=== PATIENT | female | born 1980 | race Caucasian/White ===

== ENCOUNTER 2020-02-03 10:33 | Emergency (ER) | payer SELFPAY ==
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
[2020-02-03 10:44] VITALS: BP 101/66; PULSE 82; RESP 14; TEMP 36.8; O2SAT 100
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
== END 2020-02-03 12:09 | disposition home or self-care (01) ==
PROVIDERS: Emergency Provider Nurse Practitioner Family
DX: S13.4XXA Sprain of ligaments of cervical spine, initial encounter (principal); S29.012A Strain of muscle and tendon of back wall of thorax, initial encounter; F17.210 Nicotine dependence, cigarettes, uncomplicated; V48.5XXA Car driver injured in noncollision transport accident in traffic accident, initial encounter; F41.9 Anxiety disorder, unspecified; K21.9 Gastro-esophageal reflux disease without esophagitis
CPT/HCPCS: 72050; 72100; 99213; G0463

== ENCOUNTER 2024-12-25 14:39 | Emergency (ER) | payer OTHER, SELFPAY ==
--- NOTE | ~2024-12-25 | XR_ITS ---
EXAM: XR ankle RT min 3V DATE: 12/25/2024 15:19 HISTORY: injury right medial ankle . COMPARISON: None available. FINDINGS: Normal mineralization. No acute fracture or dislocation. Well-corticated ossific medial fr agment may represent a chronic fracture fragment or dystrophic ossification. No lytic or blastic lesi on. Mild degenerative change at the ankle joint. Os trigonum. Mild Achilles and moderate plantar enth esopathy. No erosion or periosteal change. Moderate medial and mild lateral soft tissue swelling. IMPRESSION: No acute osseous finding in the right ankle. Reviewed, dictated and finalized at location K.
[2024-12-25 14:48] VITALS: BP 100/67; PULSE 69; RESP 20; TEMP 36.8; O2SAT 98
--- NOTE | 2024-12-25 15:14 | ED.LOWEXIN ---
HPI - Extremity Injury (Lower) General Chief Complaint: Extremity Injury, Lower Stated Complaint: right ankle injury Time Seen by Provider: 12/25/24 15:05 Source: patient, RN notes reviewed and old records reviewed Mode of arrival: ambulatory Limitations: no limitations History of Present Illness HPI Narrative: 44-year-old female presents to [facility] with complaints right ankle injury which initially happened 2-3 weeks ago when she twisted her ankle and today she has experienced a popping sensation in her inner right ankle and has hurt worse today with ambulation. Some swelling noted to medial ankle area no obvious deformity. strong right pedal pulse noted. Patient reports that she has been taking Ibuprofen and using ice to her ankle. MD complaint: ankle injury Onset (ago): week(s) (2-3 weeks ago initial injury) Type of Injury: other (reports twisted) Severity: mild Treatments prior to arrival: cold therapy and NSAIDS Related Data Home Medications ?Medication ?Instructions ?Recorded ?Confirmed ?Last Taken ?Type No Home Medications 12/25/24 12/25/24 Unknown History Allergies Allergy/AdvReac Type Severity Reaction Status Date / Time No Known Allergies Allergy Verified 12/25/24 15:10 Review of Systems Review of Systems: CONSTITUTIONAL: Denies fever, chills, or sweats. EYES: Denies visual changes, redness, or discharge. ENT: Denies rhinorrhea, congestion, sore throat, or otalgia. CARDIOVASCULAR: Denies chest pain, palpitations, or edema. RESPIRATORY: Denies cough or dyspnea. GASTROINTESTINAL: Denies abdominal pain, nausea, vomiting, or diarrhea. GENITOURINARY: Denies dysuria or hematuria. SKIN: Denies rash or itching. MUSCULOSKELETAL: Denies back pain, reports some pain and swelling to medial right ankle area, or myalgia. NEUROLOGIC: Denies headache, numbness, or weakness. PSYCHIATRIC: Reports history of anxiety or depression. All systems reviewed & are unremarkable except as noted in HPI and below PMFSH Past Medical History Medical History History of gastroesophageal reflux (GERD) Anxiety Surgical History Surgical History History of tubal ligation Family History Family History Mother Hypertension Grandparent Hypertension Social History Social History Smoking packs per day: 0.5 Smoking cigarettes per day: 10.0 Years smoked: 26 Smoking pack-years: 13.00 Smoking status: Current every day smoker Tobacco type: cigarettes Second hand tobacco smoke exposure: No Alcohol intake: never Substance use: current Substance use type: marijuana Living arrangements: with family Occupation/Education: occupation Gender identity (if verbalized by the patient): Female Comments At time of signature, agree with nursing past medical, surgical, social and family history. There is no relevant family history pertinent to the presenting complaint Exam Narrative: GENERAL: Well-appearing, well-nourished, and in no acute distress. HEAD: Normocephalic, atraumatic. EYES: PERRLA and EOMI. ENT: Nares clear, no rhinorrhea or epistaxis. Mucous membranes moist. NECK: Supple.no lymphadenopathy CHEST: Clear to auscultation. No respiratory distress.SAO2 98% on room air HEART: Regular rate and rhythm. No murmur heard. Normal peripheral pulses. ABDOMEN: Soft, nontender, nondistended, normal active bowel sounds. EXTREMITIES: Normal range of motion. No edema. Exception noted to medial aspect of right ankle with some swelling noted, movement sensation and circulation is intact to right ankle with strong right pedal pulse present some painful ambulation reported. SKIN: Warm, dry, no rash. NEURO: No focal deficits. Alert and oriented x3. Course Course Emergency Course: Patient is aware of diagnosis, understands and agrees to treatment plan.? Anticipatory guidance given.? Patient agrees to follow-up as directed and is aware of reasons to seek care at the emergency department. Portions of this record may have been created with voice recognition software Level of Care: Express Care Visit Vital Signs Vital signs: Vital Signs Temperature 36.8 C 12/25/24 14:48 Pulse Rate 69 12/25/24 14:48 Respiratory Rate 20 12/25/24 14:48 Blood Pressure 100/67 12/25/24 14:48 Pulse Oximetry 98 12/25/24 14:48 Oxygen Delivery Room Air 12/25/24 14:48 Temperature 36.8 C 12/25/24 14:48 Pulse Rate 69 12/25/24 14:48 Respiratory Rate 20 12/25/24 14:48 Blood Pressure 100/67 12/25/24 14:48 Pulse Oximetry 98 12/25/24 14:48 Oxygen Delivery Room Air 12/25/24 14:48 Reviewed MDM - Extremity Injury (Lower) Differential Diagnosis Differential diagnosis: Likely ankle sprain and strain, ankle fracture and other (soft tissue swelling right ankle) Medical Records Attestation: I reviewed the patient's medical records. Imaging Data Attestation: I personally reviewed and interpreted this imaging study as follows: My impression: no acute osseous findings in right ankle some soft tissue swelling noted Radiologist's impression: [facility] [address] [place] [address] XRay Report Signed Patient: Candice Perez : 1980 MR#: [id number] Age: 44 Acct:[id number] Loc: [facility] ADM Date: 12/25/24Attending Dr: Ordering Physician: Charmaine lAmanzar APRN Date of Service: 12/25/24 Procedure(s): XR ankle RT min 3V Accession Number(s): [id number] cc: RAILWAY SIGNAL ELECTRICIAN PHYSICIAN; Charmaine Almanzar APRN~ EXAM: XR ankle RT min 3V DATE: 12/25/2024 15:19 HISTORY: injury right medial ankle . COMPARISON: None available. FINDINGS: Normal mineralization. No acute fracture or dislocation. Well-corticated ossific medial fragment may represent a chronic fracture fragment or dystrophic ossification. No lytic or blastic lesion. Mild degenerative change at the ankle joint. Os trigonum. Mild Achilles and moderate plantar enthesopathy. No erosion or periosteal change. Moderate medial and mild lateral soft tissue swelling. IMPRESSION: No acute osseous finding in the right ankle. Reviewed, dictated and finalized at location K. Please be advised this is a medical document. It is intended for [id number] communication. It is written in medical language and may contain unfamiliar abbreviations or verbiage. Medical documents are intended to carry relevant information, facts as evident, and the clinical opinion of the practitioner at the time of the encounter. This report may have been done utilizing a voice recognition system. Attempts have been made to correct errors. However, there may be uncorrected grammatical, spelling, and recognition errors present. The file time of this note does not necessarily represent the time of service. Dictated By: Jitendra Huffman MD 12/25/24 1520 Signed By: <Electronically signed by Jitendra Huffman MD in OV> Critical Care Time Critical Care Time Critical Care Time: No Discharge Plan Discharge Clinical Impression: Ankle sprain and strain Patient Disposition: Home, Self-Care Condition: Stable Instructions: Ankle Sprain (ED) Additional Instructions: Elastic wrap or orthopedic splint as directed for comfort for the next 5-7 days Tylenol for lesser pain Ibuprofen regularly for the next 2-3 days for the inflammation Follow-up with orthopedic surgeon if no improvement or further concerns Follow-up with PCP if further problems or concerns Ice to the area 20-30 minutes 4-6 times a day Elevate above heart If your symptoms persist, change or worsen significantly before you can contact your personal physician then please, without delay, go to the emergency department for further evaluation. Follow-up with PCP in 7-10 days or sooner if needed Patient Language: Lao Prescriptions: No Action No Home Medications Follow-up/Referrals: PHYSICIAN,RAILWAY SIGNAL ELECTRICIAN [Primary Care Provider] - Time of Disposition: 15:29 Quality Baljit Coma Scale Eyes: Open Verbal: Oriented and Alert Motor: Follows Commands Baljit Coma Total Score: 15
--- OUTSIDE RECORDS SUMMARY | 2024-12-25 17:08 | XMS_ITS | Referral Summary ---
Author Organization [facility] Address [address] [place] [address] Care Team Providers Care Section Leader Screen Printing Name Role Phone Unknown, Notinfile Primary Care Provider Unavail able Dahlia Ramos MD Unavailable Allergies Active Allergy Reactions Criticality Noted Date Comments Latex Itching Low 07/17/2022 Medications busPIRone (BUSPAR) 7.5 mg tablet Take 1 tablet (7.5 mg total) by mouth 2 (two) times a day 4 Active HYDROcodone-kenneth taminophen (NORCO) 5-325 mg per tabletIndicatio ns:Pain Take 1 tablet by mouth every 4 (four) hours as needed for pain 10 tablet 4 Active Additional Information Patient not taking.Reported on 04/10/2024 ibuprofen (ADVIL,MOTRIN) 600 mg tablet Take 1 tablet (600 mg total) by mouth every 6 (six) hours as needed for pain 4 Active Additional Information Patient not taking.Reported on 04/10/2024 Active Problems Problem Noted Date Diagnosed Date S/P laparoscopic hysterectomy 03/27/2024 Menorrhagia with regular cycle 02/17/2024 Dysmenorrhea 02/17/2024 Pelvic pain in female 02/17/2024 Dyspareunia, female 02/17/2024 Anxiety disorder 01/26/2024 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 Overview (01/21/2017): NONTOX NODUL GOITER NOS Hyperlipidemia 03/03/2014 Overview (01/21/2017): Hyperlipidemia LDL goal < 130 Lipoprotein deficiency disorder 01/26/2012 Overview (01/21/2017): Lipoprotein deficiency Depression 06/09/2011 Overview (01/21/2017): DEPRESSIVE DISORDER NEC Hypothyroidism 06/09/2011 Overview (01/22/2017): Hypothyroidism, unspec Immunizations Immunization Administration Dates Next Due Influenza, Split 08/18/2011 Social History Tobacco Use Types Packs/Day Years Used Date Smoking Tobacco: Every Day Cigarettes Smokeless Tobacco: Never Tobacco Cessation:Ready to Q uit: Not Asked; Counseling Given: Not Answered Alcohol Use Standard Drinks/Week Comments Not Currently 0 (1 standard drink = 0.6 oz pur e alcohol) AUDIT-C Answer Date Recorded Frequency of Alcohol Consumption Not on file 03/17/2024 Q2: How many drinks containi ng alcohol do you have on a typical day when you are drinking? Patient does not drink Frequency of Binge Drinking Not on file 02/17 Personal Safety Answer Date Recorded Have you ever been in or are you currently in a harmful physical or emotional relationship or is someone making you feel afraid or unsafe? 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 Not on file Not on file Not on file Last Filed Vital Signs Vital Sign Reading Time Taken Comments Blood Pressure 118/80 04/10/2024 2:37 PM CDT Pulse 65 03/27/2024 10:40 AM CDT Temperature 36.3 C (97.4 F) 03/27/2024 10:40 AM CDT Respiratory Rate 16 03/27/2024 10:40 AM CDT Oxygen Saturation 100% 03/27/2024 10:40 AM CDT Inhaled Oxygen Concentration - - Weight 73.9 kg (163 lb) 04/10/2024 2:37 PM CDT Height 167.6 cm (5' 6 ) 03/27/2024 6:26 AM CDT Body Mass Index 26.31 03/27/2024 6:26 AM CDT Plan of Treatment Not on file Procedures Procedure Name Priority Date/Time Associated Diagnosis Comments DIAGNOSTIC MAMMOGRAM BILATERAL W JACQUI Schedule Routine, Read Routine (OP Routine) 08/18/2024 9:12 AM CDT Bilateral breast cysts HIGH RISK HPV DNA DETECTION WITH GENOTYPING Routine 01/26/2024 1:01 PM CDT Screening for malignant neoplasm of the cervix from Last 3 Months or Most Recently Relevant to Health Maintenance Results * Diagnostic Mammogram Bilateral W Jacqui (08/18/2024 9:12 AM CDT) Anatomical Region Laterality Modality Breast Bilateral Mammography 08/18/2024 9:50 AM CDT Impressions 08/18/2024 9:50 AM CDT Bilateral breast lesions are benign. No mammographic or sonographic evidence of malignancy. OVERALL FINAL ASSESSMENT: BI-RADS Category 2: Benign. RECOMMENDATION: Patient may return to her annual bilateral screening mammogram schedule. The patient is due in 6 months time. Electronically signed by: Lawanda Nails M.D. Narrative 08/18/2024 9:50 AM CDT EXAMINATION: BILATERAL DIGITAL DIAGNOSTIC MAMMOGRAM INCLUDING CAD AND BILATERAL DIGITAL BREAST TOMOSYNTHESIS; BILATERAL BREAST SONOGRAM HISTORY: Follow-up bilateral breast lesions on baseline study COMPARISON: 02/07/2024, 02/02/2024 TECHNIQUE: Full field digital mammographic views of BOTH breasts were performed, including computer aided detection (CAD) and BILATERAL digital breast tomosynthesis (DBT). Directed ultrasound evaluation of BOTH breasts was performed. BREAST PARENCHYMAL COMPOSITION: The breasts are heterogeneously dense, which may obscure small masses. MAMMOGRAM FINDINGS: Right breast focal asymmetry is again identified and unchanged. Left breast asymmetry is unchanged. There is no new dominant densities or suspicious microcalcifications identified bilaterally. SONOGRAM FINDINGS: Targeted right breast ultrasound was performed in the region of interest. At the 12 o'clock position 1 cm from the nipple is an anechoic cyst measuring 3 mm. This is unchanged. This may correlate with the mammographic finding is unchanged and is benign. Targeted left breast ultrasound was performed in the region of interest. Again identified at the 1 o'clock position 2 cm from the nipple. There is an anechoic cyst identified measuring 5 mm. There is no evidence of color flow. This is unchanged when compared with the previous study. This previously correlated as incidental and is benign. us Dahlia Ramos MD IMG MAMMO PROCEDURES Final Result * High Risk HPV DNA Detection with Genotyping (Molecular component) (01/26/2024 1:01 PM CDT) HPV HR 16 Not Detected Not Detected [facility] Comment:Testing performed by : [facility], [address] [place]., [address] HPV HR 18 Not Detected Not Detected [facility] Comment:Testing performed by : [facility], [address] [place]., [address] HPV HR Non 16/18 Not Detected Not Detected [facility] Comment: Interpretive Data Nucleic acid amplification for detection of high-risk Human Papilloma virus (HPV) is performed by the Zoila Clover 6800 HPV test. This assay specifically detects HPV-16 and HPV-18 genotypes. The following HPV genotypes are detected as high-risk HPV: HPV-31, 33, 35, ,39, 45, 51, 52, 56, 58, 59, 66, and 68. This assay has been approved by the [place] Food and Drug Administration for detection of HPV in cervical specimens collected by a physician using an endocervical brush/spatula or cervical broom and placed in the ThinPrep Pap Test PreservCyt collection containers. The performance characteristics of this test have been verified by the [facility] laboratory. Correlate with separately reported cytology results, as applicable. Interpretive data last revised 23 Testing performed by: [facility], [address] [place] [address] Endocervical 01/26/2024 1:01 PM CDT 01/27/2024 10:11 AM CDT Narrative [facility] - 01/28/2024 7:16 AM CDT Clinical history and diagnosis->DX Z12.4 Testing type->Screening Last menstrual period (date if known)->01/01/24 Dahlia Ramos MD LAB BODY FLUIDS AND S TOOLS ORDERABLES Final Result [facility] [address] [place] [address] [facility] from Last 3 Months or Most Recently Relevant to Health Maintenance Insurance [facility] CHO[facility] PLUS [facility] CHO[facility] PLUS Advance Directives For more information, please contact: [phone] * Full Code (Latest Code Status on File) Date Activated Date Inactivated Comments 03/27/2024 10:44 AM 03/27/2024 6:24 PM Care Teams Section Leader Screen Printing Relationship Specialty Start Date End Date Unknown, Notinfile PCP - General Service Electrician 5/30/24 Dahlia Ramos MD [address] [place] [address] Public Address System Operator Obstetrics and Gynecology 03/27/24
--- OUTSIDE RECORDS SUMMARY | 2024-12-25 17:08 | XMS_ITS | Clinical Summary ---
Author Organization [facility] Address [address] [place] [address] Care Team Providers Care Wood Machinist Name Role Phone Unknown, Notinfile Primary Care [...] Administration Dates Next Due Influenza, Split 08/18/2011 Surgical History Surgery Date Site/Laterality Comments LAPAROSCOPIC TUBAL LIGATION 2010 Bilateral SALPINGECTOMY 10/18/2023 - 10/17/2024 Bilateral with [facility] LAPAROSCOPIC TOTAL HYSTERECTOMY 10/18/2023 - 10/17/2024 [facility]-bilateral salpingectomy for menorrhagia, dysmenorrhea, dypareunia, pelvic pain. Benign pathology. Medical History Medical History Date Comments Disorder of thyroid Thyroid dise ase Anxiety and depression Hx Other Medical 2006 Hypothyroidism, primary Smoking Family History Medical History Relation Name Comments Heart attack Brother 1 Gabriel Myocardial infa rction; Cause of : Myocardial infarction Other Brother 1 Gabriel Cancer -testicu lar; Other Brother 2 Mark Alive and well; Other Father PTSD ; /Color blindness; /Alive and well; Heart attack Maternal Grandfather Myocard ial infarction; Cause of : Myocardial infarction Stroke Maternal Grandfather Anuerysm Maternal Grandmother Aneurys m; Diabetes type II Mother Diabetes -T ype 2; Heart attack Mother Hypertension Mother Hypertension; Hyperthyroidism Mother Hyperthyroid ism; Osteoporosis Mother Osteoporosis; Other Mother Alive and well; Thyroid disease Mother Thyroid diso rder; Diabetes type II Other 1 Family hist ory of Diabetes -Type II; Thyroid disease Other 2 Family histo ry of Thyroid disorder; Thyroid disease Other 3 Family histo ry of Thyroid disease; Cancer Other 4 Family history of Cancer; Heart disease Other 5 Family history of Heart disease; Hypertension Other 6 Family history of Hypertension; Colon cancer Paternal Grandfather Cancer -colon; Heart disease Paternal Grandfather Leukemia Paternal Grandfather Leukemi a; Coronary artery disease Paternal Grandmother Coronary artery disease; Parkinsonism Paternal Grandmother Skin cancer Paternal Grandmother Cancer -skin; Relation Name Status Comments Brother 1 Gabriel Brother 2 Mark Alive Father Alive Maternal Grandfather Maternal Grandmother Mother Alive Other 1 Other 2 Other 3 Other 4 Other 5 Other 6 Paternal Grandfather Paternal Grandmother Social History Tobacco Use Types Packs/Day Years [...] on file Legal Sex Female 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 Not on file Not on file Not on file Obstetrics History Para Term AB IAB SAB Ectopic Multiple Livin g Live Births 3 3 3 3 3 Date Outcome GA Total Labor Labor/2nd/3rd Weight Sex Type Anes PTL Keny[place] A1 A5 Name Clin 2000 Term 3.26 kg (7 lb 3 oz) F Vaginal Living 2005 Term 3.544 kg (7 lb 13 oz) F Vaginal Living 2010 Term 3.43 kg (7 lb 9 oz) M Vaginal Living Comments Uncomplicated term vaginal d eliveries. Last Filed Vital Signs Vital Sign Reading [...] 03/27/2024 6:26 AM CDT Plan of Treatment Health Maintenance Due Date Last Done Comments Depression Screening 1980 Hepatitis C Screening 1980 DTaP/Tdap/Td Vaccine (1 - Tdap) 1991 Varicella Vaccines (1 of 2 - 13+ 2-dose series) 1993 Hepatitis B Screening 1998 Regular Well Visit/Exam 18-64 1998 Pneumococcal vaccine <65 (1 of 2 - PCV) 1999 Covid-19 Vaccine (3 - 2023- season) 2024 04/05/2021, 03/15/2021 Influenza Vaccine (#1) 2024 6, 08/18/2011 Breast Cancer Screening-Mammogram 08/18/2025 08/18/2024, 02/07/2024, 02/02/2024 Cervical Cancer Screening Discontinued 2023, 01/26/2024 HPV Vaccines Aged Out No longer eligi ble based on patient's age to complete this topic Procedures Procedure Name Priority Date/Time Associated Diagnosis Comments DIAGNOSTIC MAMMOGRAM BILATERAL W BRIAN Schedule Routine, Read Routine (OP Routine) 08/18/2024 9:12 AM CDT Bilateral breast cysts HIGH RISK HPV DNA DETECTION WITH GENOTYPING Routine 01/26/2024 1:01 PM CDT Screening for malignant neoplasm of the cervix from Last 3 Months or Most Recently Relevant to Health Maintenance Results * Diagnostic Mammogram Bilateral W Brian (08/18/2024 9:12 AM CDT) Anatomical Region Laterality [...] previously correlated as incidental and is benign. Dahlia Ramos MD IMG MAMMO PROCEDURES Final Result * High Risk HPV DNA Detection with Genotyping (Molecular component) (01/26/2024 1:01 PM CDT) HPV HR 16 Not Detected Not Detected [facility] Comment:Testing performed by : [facility], [address] [place] [address] HPV HR 18 Not Detected Not Detected [facility] Comment:Testing performed by : [facility], [address] [place] [address] HPV HR Non 16/18 Not Detected Not Detected [facility] Comment: Interpretive Data Nucleic acid amplification for [...] this test have been verified by the [facility] Molecular Infectious Disease laboratory. Correlate with separately reported cytology results, as applicable. Interpretive data last revised 23 Testing performed by: [facility], [address] [place] [address] Endocervical 01/26/2024 1:01 PM CDT 01/27/2024 10:11 AM CDT Narrative [facility] - 01/28/2024 7:16 AM CDT Clinical history and diagnosis->DX Z12.4 Testing type->Screening Last menstrual period (date if known)->01/01/24 Dahlia Ramos MD LAB BODY FLUIDS AND S TOOLS ORDERABLES Final Result [facility] [id number] Department [place] [address] [facility] from Last 3 Months or Most Recently Relevant to Health Maintenance Insurance [facility] CHO[facility] PLUS [facility] CHOICE PLUS Advance Directives For more information, please contact: [phone] * Full Code (Latest Code Status on File) Date Activated Date Inactivated Comments 03/27/2024 10:44 AM 03/27/2024 6:24 PM Care Teams Wood Machinist Relationship Specialty Start Date End Date Unknown, Notinfile PCP - General Payroll Accounting Clerk 03/16/24 Dahlia Ramos MD [address] [id number] [employer] Obstetrics [facility] Gynecology 03/27/24
--- OUTSIDE RECORDS SUMMARY | 2024-12-25 17:08 | XMS_ITS | Clinical Summary ---
Author Organization [facility] Address [address] [place] [address] Phone Care Team Providers Care Gauge And Instrument Inspector Name Role Phone Provider, None Primary Care Provider Unavailabl e Allergies No known active allergies Medications buPROPion (WELLBUTRIN) 300 MG TABLET SR 24 HR XL tablet Take 300 mg by mouth daily. Active venlafaxine (EFFEXOR) 75 MG Tablet Active Active Problems Problem Noted Date Diagnosed Date Adjustment disorder with mixed anxiety and depre ssed mood 04/24/2024 Dysthymic disorder 01/10/2018 Generalized anxiety disorder 01/10/2018 Immunizations Immunization Administration Dates Next Due Influenza Vaccine greater than 3 yrs 06/30/2016 Family History Medical History Relation Name Comments Alcohol Abuse Brother 3 Raul Relation Name Status Comments Brother 1 Brother 2 Mark Alive Brother 3 Raul Alive Brother 4 Shreyas Alive Brother 5 Alive Father Alive Mother Alive Social History Tobacco Use Types Packs/Day Years Used Date Smoking Tobacco: Every Day Cigarettes Smokeless Tobacco: Never Alcohol Use Standard Drinks/Week Comments Not Currently 0 (1 standard drink = 0.6 oz pur e alcohol) Comments Unknown Sex and Gender Information Value Date Recorded Sex Assigned at Not on file Legal Sex Female 11:05 PM CDT Gender Identity Not on file Sexual Orientation Not on file Plan of Treatment Health Maintenance Due Date Last Done Comments Hepatitis C Virus (HCV) Screening 1980 TdaP Immunization 1980 Hepatitis B Immunization (1 of 3 - 19+ 3-dose series) 1999 Pneumococcal Immunization Combined (1 of 2 - PCV) 1999 Pap Smear 2001 Cervical Cancer Screening (CCS) 2010 HPV/Cotest 2010 Influenza Immunization (#1) 2024 06/30/2016 SARS-COV-2 Immunization ( season) 2024 04/11/2021, 03/15/2021 Mammogram 02/06/2025 02/07/2024, 02/02/2024 Respiratory Syncytial Virus (RSV) Immunization (Adult) (1 - 1-dose 75+ series) 2055 Discussion re Starting/Frequency of Mammograms Completed 02/07/2024, 02/02/2024 Meningococcal Immunization (ACWY) Aged Out No longer eligible b ased on patient's age to complete this topic Rotavirus Immunization Aged Out No lo nger eligible based on patient's age to complete this topic Goals Goal Patient Goal Type Associated Problems Recent Progress Patient-Stated? Author To be able to process things . Behavioral Health On track( 024 4:43 PM CDT) Yes Dahlia Canela, [facility] Note: Goal/Objective: Increase ability to cope with life stressors. Anticipated Time Frame for Goal Completion: 3 months Goal Reviewed with: patient Readiness to change: Thinking about making a change Department associated with goal: [facility] Steps to achieve goal: will identify at least two coping skills/activities/habits that have helped to manage anxiety in the past. will identify at least three new coping skills/activities/habits that may help to prevent and/or cope with anxiety. 3. will identify a plan to implement coping skills and follow this plan for two weeks and evaluate the impact on anxiety 4. Will attend individual and/or group therapy at least 1x/month at least 6 sessions Insurance [facility] Care Teams Gauge And Instrument Inspector Relationship Specialty Start Date End Date Provider, None [place] PCP - General 03/16/24
== END 2024-12-25 15:30 | disposition home or self-care (01) ==
PROVIDERS: Emergency Provider Registered Nurse
DX: S93.401A Sprain of unspecified ligament of right ankle, initial encounter (principal); S96.911A Strain of unspecified muscle and tendon at ankle and foot level, right foot, initial encounter; X50.9XXA Other and unspecified overexertion or strenuous movements or postures, initial encounter; K21.9 Gastro-esophageal reflux disease without esophagitis; F17.210 Nicotine dependence, cigarettes, uncomplicated
CPT/HCPCS: 73610; 99213; G0463